=== PATIENT | female | born 1985 | race Caucasian/White ===

== ENCOUNTER 2019-03-25 10:05 | Outpatient (CLI) | payer OTHER, SELFPAY ==
--- NOTE | 2019-03-25 10:15 | MM_ITS ---
WS: [id number] BILATERAL DIGITAL DIAGNOSTIC MAMMOGRAM MAMMOGRAPHY WITH CAD CLINICAL INFORMATION: LT BREAST LUMP/MASS 1 AND 3 O'CLOCK COMPARISON: None. TECHNIQUE: Bilateral CC, MLO, and ML views. FINDINGS: The breasts are composed of heterogeneous fibroglandular density, which can limit the detection of sm all underlying mass lesions. Palpable marker outer left breast. Dense breast tissue in this area. Ult rasound is pending. ULTRASOUND BREAST LEFT TECHNIQUE: Ultrasound left breast focused area of concern. CLINICAL INFORMATION: LT BREAST LUMP/MASS 1 AND 3 O'CLOCK COMPARISON: None. FINDINGS: Ultrasound left breast at 3:00 position 3 cm from the nipple. In the areas areas of palpable concern, at the 12:00 and 2:00 position are multiple small simple and complex breast cysts that have a benign appearance. Findings are consistent with fibrocystic disease. No suspicious lesions to target for bi opsy. MM/[place] [id number] IMPRESSION: BI-RADS: 2-Benign FOLLOW UP: Age 40 Recommend annual screening mammography age 40.
== END 2019-03-25 10:06 | disposition home or self-care (01) ==
LOC: RADSHAW 10:10
PROVIDERS: Family Provider Family Medicine; PCP Family Medicine; Visit Provider Family Medicine
DX: N63.21 Unspecified lump in the left breast, upper outer quadrant (principal)
CPT/HCPCS: 76642; 77066

== ENCOUNTER → 2019-05-12 08:22 | Outpatient (BNVA) | payer OTHER, SELFPAY | PROVIDERS: Family Provider Family Medicine; PCP Family Medicine; Visit Provider Nurse Practitioner | DX: F90.2 Attention-deficit hyperactivity disorder, combined type (principal); F41.1 Generalized anxiety disorder | CPT/HCPCS: 99214 ==

== ENCOUNTER → 2019-07-28 07:47 | Outpatient (BNVA) | payer OTHER, SELFPAY | PROVIDERS: Family Provider Family Medicine; PCP Family Medicine; Visit Provider Nurse Practitioner | DX: F41.1 Generalized anxiety disorder (principal); F90.2 Attention-deficit hyperactivity disorder, combined type | CPT/HCPCS: 99213 ==

== ENCOUNTER 2020-01-01 22:06 | Emergency (ER) | payer OTHER, SELFPAY ==
[2020-01-01 22:12] VITALS: BP 120/82; PULSE 77; RESP 16; TEMP 36.7; O2SAT 100; BMI 25.8
--- NOTE | 2020-01-01 22:17 | XRR_ITS ---
PROCEDURE INFORMATION: Exam: XR Left Knee Exam date and time: 01/01/2020 11:00 PM Age: 34 years old Clinical indication: Injury or trauma; Fall; Sprain or strain; Patella or knee; Left; Additional info: Left knee pain TECHNIQUE: Imaging protocol: XR Left knee. Views: 3 views. COMPARISON: No relevant prior studies available. FINDINGS: Bones/joints: Normal. Soft tissues: Normal. XR/XR knee LT 3V* [id number] IMPRESSION: No acute findings.
--- NOTE | 2020-01-01 22:21 | ED_ITS ---
HPI - Extremity Problem General: Chief complaint: Extremity Injury, Lower Stated complaint: pain in left leg Time Seen by Provider: 01/01/20 22:09 History of Present Illness: HPI Narrative: 34-year-old female patient presents to the emergency department with left knee pain. She reports inability to extend her leg. States was sitting on the bed with her leg folded underneath her, when she went to get up, twisted her leg and felt intense pain to the left side of the left knee. Engages in cycling activity. Associated symptoms: Deny chest pain, fever(s) or rash Review of Systems General: Reports: 10 or more systems reviewed and unremarkable except in HPI and below Const: Denies: fever(s), chills or diaphoresis Eyes: Denies: blurry vision or eye redness ENMT: Denies: throat pain, dental pain or disequilibrium Card: Denies: chest pain, palpitations or irregular heart rhythm Resp: Denies: dyspnea, productive cough, non-productive cough or wheezing GI: Denies: abdominal pain, nausea or vomiting : Denies: difficulty voiding or dysuria Musc: Reports: joint pain (left knee); Denies: neck pain or back pain Skin/Breast: Denies: rash or pruritus Neuro: Denies: headache(s), weakness in extremities or behavioral changes Kaleb/Lymph: Denies: easy bruising PFSH ED PFSH: Medical History (Updated 01/01/20 @ 23:15 by ELOY Gamez) Attention-deficit hyperactivity disorder, combined type Generalized anxiety disorder Family History Mother Breast cancer Grandfather Diabetes paternal Father Pulmonary embolism Epilepsy Social History Smoking and tobacco status: never smoked Alcohol intake: current Alcohol intake frequency: holidays/special occasions only Physical Exam Const: COMMON NORMALS: no acute distress, patient oriented x3, healthy appearing and alert GENERAL APPEARANCE: cooperative, comfortable and well hydrated HENMT: COMMON NORMALS: normocephalic, Normal external nose present and moist oral mucous membranes HEAD & SCALP: normocephalic NOSE: Normal external nose present Eye: COMMON NORMALS: Equal, round and reactive pupils present and EOMs intact bilaterally GENERAL EYE: appearance normal, both eyes and all related structures PUPIL: Yes Equal, round and reactive pupils present Neck/C-Spine: COMMON NORMALS: full ROM and no lymphadenopathy GENERAL: Yes normal visual inspection and Yes trachea midline CERVICAL SPINE: Yes cervical ROM normal Lymph: LYMPHATIC: no lymphadenopathy noted Chest: COMMONS NORMALS: normal inspection of the chest Resp: COMMON NORMALS: normal respiratory effort and clear to auscultation bilaterally AUSCULTATION: clear to auscultation bilaterally Cardio: COMMON NORMALS: regular rhythm, S1 normal heart sound present, S2 normal heart sound present and Peripheral pulses 2+ throughout RHYTHM: regular rhythm HEART SOUNDS: S1 normal heart sound present and S2 normal heart sound present PERIPHERAL PULSES: Peripheral pulses 2+ throughout GI: COMMON NORMALS: Soft to palpation and non-tender INSPECTION: Yes normal to inspection PALPATION: Yes Soft to palpation : COMMON NORMALS: Yes no CVA tenderness BLADDER/KIDNEY EXAM: Yes no CVA tenderness Back/Pelvis: COMMON NORMALS: no CVA tenderness and thoracic and lumbar spine normal to inspection Extremity: COMMON NORMALS: normal to inspection and capillary refill normal GENERAL: Yes normal exam except as noted LEFT LOWER EXTREMITY: Yes knee joint (edema superior, lateral tenderness along the LCL) Left knee: Yes inspection, Yes palpation (negative erythema), Yes ROM (flexion present, difficulty with extension) and Yes neurovascular exam (distally intact) Neuro: COMMON NORMALS: patient oriented x3 and no focal motor deficits SENSORIUM/ORIENTATION: Yes alert Psych: COMMON NORMALS: mental status grossly normal, Normal thought process present and cooperative ACTIVITY/MOTOR BEHAVIOR: Yes appropriate eye contact THOUGHT PROCESS: Normal thought process present Skin: COMMON NORMALS: no rashes or lesions noted and turgor normal GENERAL SKIN EXAM: no rashes or lesions noted and turgor normal Course ED course: 34-year-old female patient presents to the emergency department with left leg pain. Inability to extend her leg upon initial presentation, hydrocodone and ibuprofen administered, extension improved, left knee series without acute fracture, outpatient MRI ordered at the request of patient and her spouse who is a physical therapist, knee immobilizer prescribed here in the ED. Patient reports she has crutches at home. Agrees to follow-up with her primary care provider/orthopedic surgery pending MRI results. Results were discussed with plan of care. Social service will assist with MRI scheduling. Vital Signs: Vital signs: Vital Signs Temperature 98.0 F 01/01/20 22:12 Pulse Rate 77 10/15/20 22:12 Respiratory Rate 16 01/01/20 22:12 Blood Pressure 120/82 01/01/20 22:12 Pulse Oximetry 100 01/01/20 22:12 Discharge Plan Discharge Patient Disposition: Home Clinical Impression: Knee effusion Qualifiers: Laterality: left Qualified Code(s): M25.462 - Effusion, left knee Acute knee pain Qualifiers: Laterality: left Qualified Code(s): M25.562 - Pain in left knee Condition: Stable Prescriptions: New Robaxin-750 750 mg tablet 750 mg PO TID Qty: 14 RF: 0 IBU 800 mg tablet 800 mg PO TID PRN (Reason: pain) Qty: 20 RF: 0 No Action norgestimate-ethinyl estradiol [Sprintec (28)] 0.25-35 mg-mcg tablet 1 tab PO DAILY Qty: 84 RF: 3 sertraline [Zoloft] 50 mg tablet 50 mg PO DAILY Qty: 30 RF: 2 clonazepam 0.5 mg tablet 0.5 mg PO DAILY PRN (Reason: anxiety) Qty: 30 RF: 2 dextroamphetamine-amphetamine [Adderall] 10 mg tablet 10 mg PO BID 30 Days Qty: 60 RF: 0 Discharge Orders: Discharge Order (Routine); Ordered 01/01/20 Ordered By: Asha Raymundo Referrals: Choco Guzmán DO [Primary Care Provider] - Discharge Diet: Usual diet Discharge Activity: Limit activity as instructed Patient Instructions: Knee Sprain (ED), Crutch Instructions (ED), Knee Immobilizer (ED) Activity Restrictions/Additional Instructions: Outpatient MRI has been ordered, clinical social work therapist will be contacting you with an appointment time Follow-up with Dr. Harvey/orthopedic surgery pending MRI results Take Robaxin as needed, do not drive or operate heavy machinery with use of medications, will cause drowsiness Return to the emergency department if you develop redness swelling of the right lower extremity with increased pain. Discharge Date/Time: 01/01/20 23:31 Coding Level of Care Code ED Cage Cashier for Imtiaz Fwd Exam Comprehensive
[2020-01-01] MEDS: ibuprofen 800 mg tablet PO (22:27)
[2020-01-01] MEDS: HYDROcodone-acetaminophen 5-325 mg Tablet 1 TAB PO (22:27)
[2020-01-01] MEDS: cyclobenzaprine 10 mg Tablet PO (23:32)
--- NOTE | 2020-01-02 08:55 | DCPLANNER ---
mine safety manager had message to schedule an out patient MRI for patient. mine safety manager faxed order to centralized scheduling, will call for appointment information.
--- NOTE | 2020-01-15 09:07 | DCPLANNER ---
Humaira from centralized scheduling emailed watch case polisher stating that patients insurance would not pay for MRI out of the ER. surgical services manager spoke with Humaira, stating that order could be cancelled, watch case polisher will call patient and have patient follow up with her primary care physician. surgical services manager spoke with patient, informing her that she would need to followup with her primary care and have the primary care physician order the MRI. Patient asked watch case polisher to fax patients records to the primary care physician. surgical services manager faxed patients records to primary care physician.
== END 2020-01-01 23:31 | disposition home or self-care (01) ==
PROVIDERS: Emergency Provider Nurse Practitioner Family; Family Provider Family Medicine; PCP Family Medicine
DX: M25.462 Effusion, left knee (principal)
CPT/HCPCS: 12345; 29530; 73562; 99281; 99283

== ENCOUNTER → 2020-01-13 07:46 | Outpatient (BNVA) | payer OTHER, SELFPAY | PROVIDERS: Family Provider Family Medicine; PCP Family Medicine; Visit Provider Nurse Practitioner | DX: F41.1 Generalized anxiety disorder (principal); F90.2 Attention-deficit hyperactivity disorder, combined type | CPT/HCPCS: 99213 ==

== ENCOUNTER 2020-04-11 19:58 | Emergency (ER) | payer OTHER, SELFPAY ==
[2020-04-11 20:31] VITALS: BP 124/70; BP 127/64; PULSE 76; PULSE 90; RESP 14; RESP 16; TEMP 37; O2SAT 98; O2SAT 99; BMI 23.6
--- NOTE | 2020-04-11 20:46 | W.ED.EXTPRO ---
HPI - Extremity Problem General: Chief complaint: Extremity Injury, Lower Stated complaint: torn left knee Time Seen by Provider: 04/11/20 20:35 Source: patient Mode of arrival: ambulatory Limitations: no limitations History of Present Illness: HPI Narrative: 34-year-old female who has had left knee pain. I saw her months ago where she had a her left bleeding lockup sound like a possible tear of her meniscus. She states that she is going through divorce and did not follow-up with orthopedist and did not have an MRI. She states that tonight it locked up again and having pain in that knee and difficulty straightening it. She states she is unable to ambulate on it. She denies any new injuries. Associated symptoms: Deny chest pain, fever(s) or rash Review of Systems Const: Denies: fever(s), chills, body aches or change in appetite Eyes: Denies: blurry vision or eye discomfort ENMT: Denies: throat pain or dental pain Card: Denies: chest pain Resp: Denies: dyspnea GI: Denies: abdominal pain, nausea, vomiting or diarrhea : Denies: dysuria Musc: Reports: joint pain Skin/Breast: Denies: rash Neuro: Denies: headache(s) Psych: Denies: depression Kaleb/Lymph: Denies: easy bruising All/Imm: Denies: urticaria PFSH ED PFSH: Medical History Attention-deficit hyperactivity disorder, combined type Generalized anxiety disorder Family History Mother Breast cancer Grandfather Diabetes paternal Father Pulmonary embolism Epilepsy Social History Smoking and tobacco status: never smoked Alcohol intake: current Alcohol intake frequency: holidays/special occasions only Physical Exam Const: COMMON NORMALS: no acute distress, patient oriented x3 and healthy appearing HENMT: COMMON NORMALS: normocephalic and atraumatic HEAD & SCALP: normocephalic and atraumatic Eye: COMMON NORMALS: Equal, round and reactive pupils present and EOMs intact bilaterally PUPIL: Yes Equal, round and reactive pupils present Neck/C-Spine: COMMON NORMALS: full ROM and supple Chest: COMMONS NORMALS: normal inspection of the chest and normal palpation of entire chest wall Resp: COMMON NORMALS: normal respiratory effort, No retractions, No use of accessory muscles and clear to auscultation bilaterally AUSCULTATION: clear to auscultation bilaterally Cardio: COMMON NORMALS: regular rate, regular rhythm and No murmurs present (Cardio) RATE: regular rate RHYTHM: regular rhythm GI: COMMON NORMALS: Normal to inspection, nondistended, normoactive bowel sounds present, Soft to palpation, non-tender and no masses PALPATION: Yes Soft to palpation Extremity: COMMON NORMALS: normal to inspection NARRATIVE EXTREMITY EXAM: Tenderness along left knee. She is having muscles to madams and difficulty straightening that leg. No obvious deformity. Neuro: COMMON NORMALS: patient oriented x3, moves all extremities and no focal motor deficits Psych: COMMON NORMALS: mental status grossly normal, Normal thought process present and cooperative THOUGHT PROCESS: Normal thought process present Skin: COMMON NORMALS: no rashes or lesions noted and no wounds GENERAL SKIN EXAM: no rashes or lesions noted Course Vital Signs: Vital signs: Vital Signs Temperature 98.6 F 04/11/20 20:31 Pulse Rate 76 04/11/20 20:31 Respiratory Rate 16 04/11/20 20:31 Blood Pressure 127/64 04/11/20 20:31 Pulse Oximetry 99 04/11/20 20:31 MDM - Extremity (Nontraumatic) MDM Narrative: Medical decision making narrative: Patient presents here with knee pain I do not believe she needs another x-ray and likely needs an MRI in the future. Patient's given pain meds along with muscle relaxants and she is to follow-up orthopedics. Patient is return if worsening. Discharge Plan Discharge Patient Disposition: Home Clinical Impression: Knee pain, left Qualifiers: Chronicity: acute Qualified Code(s): M25.562 - Pain in left knee Condition: Stable Prescriptions: [place] 5-325 mg tablet 1 tab PO Q6H PRN (Reason: pain) Qty: 14 RF: 0 Robaxin-750 750 mg tablet 750 mg PO Q6H Qty: 30 RF: 0 No Action norgestimate-ethinyl estradiol [Sprintec (28)] 0.25-35 mg-mcg tablet 1 tab PO DAILY Qty: 84 RF: 3 dextroamphetamine-amphetamine [Adderall] 10 mg tablet 10 mg PO BID 30 Days Qty: 60 RF: 0 clonazepam 0.5 mg tablet 0.5 mg PO DAILY PRN (Reason: anxiety) Qty: 30 RF: 2 sertraline [Zoloft] 50 mg tablet 50 mg PO DAILY Qty: 30 RF: 2 Robaxin-750 750 mg tablet 750 mg PO TID Qty: 14 RF: 0 IBU 800 mg tablet 800 mg PO TID PRN (Reason: pain) Qty: 20 RF: 0 Discharge Orders: Discharge ED (Routine); Ordered 04/11/20 Ordered By: Laurie Juárez Referrals: Ruslan Garduno MD [Physician] - 1-3 days Choco Guzmán DO [Primary Care Provider] - Discharge Diet: Advance as tolerated Discharge Activity: Resume usual activity Patient Instructions: Knee Pain (ED) Coding Level of Care Code ED Rack Room Worker for Imtiaz Baptiste
[2020-04-11] MEDS: HYDROcodone-acetaminophen 7.5-325 mg Tablet 1 TAB PO (20:48)
[2020-04-11] MEDS: cyclobenzaprine 10 mg Tablet PO (20:48)
--- NOTE | 2020-04-12 10:46 | DCPLANNER ---
transport manager had message to schedule a follow up appointment for patient with ortho. transport manager called the ortho clinic, spoke with Ruma, gave clinic patients information. transport manager was told that patients information would be printed and reviewed. Clinic will call patient with appointment information.
--- NOTE | 2020-04-13 07:29 | DCPLANNER ---
Patient has a follow up appointment scheduled for Monday, April 13, 2020 at 3:[address] Garduno. Clinic will call patient with appointment information.
--- NOTE | 2020-05-20 07:31 | DCPLANNER ---
Patient had a follow up appointment scheduled for 04.13.[address] Garduno - patient did attend appointment.
== END 2020-04-11 20:57 | disposition home or self-care (01) ==
PROVIDERS: Emergency Provider Emergency Medicine; PCP Family Medicine
DX: M25.562 Pain in left knee (principal)
CPT/HCPCS: 12345; 99281; 99283

== ENCOUNTER 2020-05-04 08:16 | Outpatient (CLI) | payer OTHER, SELFPAY ==
--- NOTE | 2020-05-04 08:27 | MR_ITS ---
WS: [id number] MRI LEFT KNEE HISTORY: M25.562 - Pain in left knee COMPARISON: LEFT knee radiograph 01/01/2020 Anterior cruciate ligament: Mild degenerative changes in the ACL. There is a small amount of fluid li ke signal in the mid ACL but no tear. Posterior cruciate ligament: Intact. Medial collateral ligament: Intact. Posterior lateral corner structures: Intact. Medial menisci: Intact. Normal signal, size and shape. Lateral meniscus: Intact. Normal signal, size and shape. Extensor mechanism: Distal quadriceps tendon and patellar tendons are intact. Fluid and soft tissue: No joint effusion. No Stewart's cyst. Osseous and articular structures: Patellofemoral compartment: Normal. Medial compartment: No significant joint space narrowing. The cartilage is intact with very minimal s urface fraying of the cartilage. No marrow edema. Lateral compartment: Mild fraying of the articular surface, slightly greater than the medial compartm ent. No full-thickness cartilage defect. No marrow edema. MR/MR knee LT wo con* [id number] IMPRESSION: 1. Very minimal intrasubstance degenerative changes in the ACL with no tear. 2. Very minimal surface fraying of the cartilage in the medial and lateral com partments. No full-thickness cartilage defects. 3. No loose bodies or meniscal fragments identified to explain patient's sympt oms.
== END 2020-05-04 08:17 | disposition home or self-care (01) ==
LOC: RADWPI 08:25
PROVIDERS: PCP Family Medicine; Visit Provider Orthopaedic Surgery
DX: M25.562 Pain in left knee (principal)
CPT/HCPCS: 73721

== ENCOUNTER 2020-05-18 06:00 | Outpatient (RCR) | payer OTHER, SELFPAY | END 2020-06-16 23:59 | disposition home or self-care (01) | LOC: SPT 06:00 | PROVIDERS: PCP Family Medicine; Referring Provider Orthopaedic Surgery; Visit Provider Orthopaedic Surgery | DX: M25.562 Pain in left knee (principal); M54.5 Low back pain | CPT/HCPCS: 97035; 97110; 97140; 97161 ==

== ENCOUNTER → 2020-06-29 07:51 | Outpatient (BNVA) | payer OTHER, SELFPAY | PROVIDERS: PCP Family Medicine; Visit Provider Nurse Practitioner | DX: F41.1 Generalized anxiety disorder (principal); F90.2 Attention-deficit hyperactivity disorder, combined type | CPT/HCPCS: 99214 ==

== ENCOUNTER → 2020-07-05 10:23 | Outpatient (BNVA) | payer OTHER, SELFPAY | PROVIDERS: PCP Family Medicine; Visit Provider Nurse Practitioner Family | DX: J06.9 Acute upper respiratory infection, unspecified (principal); B96.89 Other specified bacterial agents as the cause of diseases classified elsewhere; J02.9 Acute pharyngitis, unspecified | CPT/HCPCS: 87071; 87880 ==

== ENCOUNTER → 2021-03-31 12:52 | Outpatient (BNVA) | payer OTHER, SELFPAY | PROVIDERS: PCP Family Medicine; Visit Provider Nurse Practitioner Family | DX: J02.9 Acute pharyngitis, unspecified (principal); J02.0 Streptococcal pharyngitis | CPT/HCPCS: 87880 ==

== ENCOUNTER 2021-08-29 12:10 | Outpatient (CLI) | payer OTHER, SELFPAY ==
--- NOTE | 2021-08-29 12:21 | XRR_ITS ---
PROCEDURE INFORMATION: Exam: XR Chest Exam date and time: 08/29/2021 12:23 PM Age: 36 years old Clinical indication: Shortness of breath; Patient HX: SOB, lungs feel full for 6 days TECHNIQUE: Imaging protocol: XR of the chest. Views: 2 views. Total images: 2 COMPARISON: CR Chest 2 views* [id number] 09/10/2018 2:51 PM FINDINGS: Lungs: Unremarkable. No consolidation. Pleural spaces: Unremarkable. No pleural effusion. No pneumothorax. Heart/Mediastinum: Unremarkable. No cardiomegaly. Bones/joints: Unremarkable. XR/XR chest 2V* [id number] IMPRESSION: No acute findings.
== END 2021-08-29 12:11 | disposition home or self-care (01) ==
PROVIDERS: PCP Family Medicine; Visit Provider Clinical Nurse Specialist Adult Health
DX: R06.02 Shortness of breath (principal)
CPT/HCPCS: 71046

== ENCOUNTER 2022-10-06 10:04 | Outpatient (CLI) | payer OTHER, SELFPAY ==
--- NOTE | 2022-10-06 10:18 | US_ITS ---
WS: [id number] Complete ABDOMINAL ULTRASOUND HISTORY: RUQ PAIN COMPARISON: None available. Liver: 14.1 cm in length. Normal size liver and echogenicity. No bile duct dilatation or mass. Portal Vein: Normal hepatopetal flow with monophasic waveform. Gallbladder: Normally distended gallbladder with no stones or wall thickening. CBD: 0.2 cm Pancreas: Normal size and echogenicity. Right kidney: 9.9 cm x 4.5 x 3.5 cm. Cortex:1.2 cm. Normal size and echogenicity. No hydronephrosis or mass. Left kidney: 10.7 cm x 4.6 cm x 5.4 cm. Cortex: 1.3 cm. Normal size and echogenicity. No hydronephrosis or mass. Spleen: Normal. Aorta and IVC: Unremarkable abdominal aorta and IVC. US/US abdomen complete* [id number] Impression: Normal complete abdomen ultrasound.
== END 2022-10-06 10:05 | disposition home or self-care (01) ==
PROVIDERS: PCP Nurse Practitioner Family; Visit Provider Nurse Practitioner Family
DX: R10.11 Right upper quadrant pain (principal)
CPT/HCPCS: 76700

== ENCOUNTER 2023-04-25 22:47 | Emergency (ER) | payer OTHER, SELFPAY ==
[2023-04-25 22:48] VITALS: BP 128/79; PULSE 84; RESP 16; TEMP 36.7; O2SAT 97; BMI 26.4
--- NOTE | 2023-04-25 22:54 | XRR_ITS ---
PROCEDURE INFORMATION: Exam: XR Left Knee Exam date and time: 04/25/2023 10:59 PM Age: 37 years old Clinical indication: Pain; Knee; Left; Patient HX: Nki TECHNIQUE: Imaging protocol: Radiologic exam of the left knee. Views: 3 views. COMPARISON: No relevant prior studies available. FINDINGS: Bones/joints: Normal. Soft tissues: Normal. XR/XR knee LT 3V* [id number] IMPRESSION: No acute findings.
--- NOTE | 2023-04-25 23:05 | ED_ITS ---
HPI - Extremity Problem General: Chief complaint: Extremity Injury, Lower Stated complaint: left knee pain Time Seen by Provider: 04/25/23 22:48 History of Present Illness: Patient presents to the ER today by EMS with complaining of posterior left knee pain. Patient says when she was lifting her dog she twisted and felt a pop in her knee. Patient was given 75 mcg of fentanyl on route by EMS. Patient stated she done this several years ago they did an x-ray, eventually sent her to physical therapy for strengthening, and the knee was better up until tonight. Patient also states her knee locks up and will not allow her to straighten it out. Review of Systems General: Reports: 10 or more systems reviewed and unremarkable except in HPI and below [facility] ED Female Reproductive History: Date of last menstrual period: 04/10/23 Physical Exam Const: COMMON NORMALS: no acute distress, average body habitus, patient oriented x3, no limitations, healthy appearing, alert and well nourished HENMT: COMMON NORMALS: normocephalic, atraumatic, hearing grossly normal bilaterally, external ears normal, Normal external nose present, moist oral mucous membranes and oropharynx normal HEAD & SCALP: normocephalic and atraumatic NOSE: Normal external nose present EXTERNAL EAR: Yes external ears normal Neck/C-Spine: COMMON NORMALS: no JVD Chest: COMMONS NORMALS: normal inspection of the chest and normal palpation of entire chest wall Resp: COMMON NORMALS: normal respiratory effort, No retractions, No use of ac cessory muscles and clear to auscultation bilaterally AUSCULTATION: clear to auscultation bilaterally Cardio: COMMON NORMALS: no JVD, regular rate, regular rhythm, S1 normal heart sound present, S2 normal heart sound present, No gallops present (Cardio), No clicks present (Cardio), No murmurs present (Cardio) and No rub (Cardio) RATE: regular rate RHYTHM: regular rhythm HEART SOUNDS: S1 normal heart sound present and S2 normal heart sound present GI: COMMON NORMALS: Normal to inspection, nondistended, normoactive bowel sounds present, Soft to palpation, non-tender, No hepatosplenomegaly present and no masses PALPATION: Yes Soft to palpation and Yes No hepatosplenomegaly present Extremity: OTHER: Left knee tender to palpate posteriorly, limited range of motion secondary to pain Neuro: COMMON NORMALS: patient oriented x3 SENSORIUM/ORIENTATION: Yes alert Course Vital Signs: Vital signs: Vital Signs Temperature 98.1 F 04/25/23 22:48 Pulse Rate 72 04/26/23 00:08 Respiratory Rate 16 04/26/23 00:08 Blood Pressure 114/71 04/26/23 00:08 Pulse Oximetry 99 04/26/23 00:08 Oxygen Delivery Me thod Room Air 04/25/23 22:48 MDM - Extremity (Nontraumatic) Medical Decision Making Patient was given 75 mcg of fentanyl by EMS was given 60 mg Norflex in ER. X- ray was obtained which showed no acute findings. Patient was placed in a knee brace and will be sent home with a prescription for meloxicam and [place]. Patient asked for referral to Ortho we will consult case management for this. Differential Diagnosis Unlikely herpes zoster, gout, cellulitis, superficial thrombophlebitis, deep venous thrombosis of upper extremity, lower extremity edema or deep vein thrombosis of lower extremity Medical Records I reviewed the patient's medical records. Lab Data I reviewed the patient's lab results. Radiology Impressions Knee X-Ray 04/25/23 22:54 IMPRESSION: No acute findings. All radiology interpretation(s) finalized by discharge Discharge Plan Discharge Patient Disposition: Home Clinical Impression: Acute pain of left knee Condition: Stable Prescriptions: New hydrocodone-acetaminophen 5-325 mg tablet 1 tab PO Q6H PRN (Reason: pain) Qty: 14 0RF meloxicam 7.5 mg tablet 7.5 mg PO .Twice daily Qty: 14 0RF Discharge Orders: Discharge ED (Routine); Ordered 04/25/23 Ordered By: Juliocesar Ambrocio Patient Instructions: Knee Pain (ED), Knee Immobilizer (ED), Opioid Safety, Pain Management Activity Restrictions/Additional Instructions: Please take all medicine as directed. Please wear knee immobilizer until seen by Ortho. Given referred to case management they will probably be calling you tomorrow to arrange an a follow-up appointment with orthopedics. Coding Level of Care Code ED Traffic Maintenance Supervisor for Imtiaz Baptiste
[2023-04-25] MEDS: orphenadrine 30 mg/mL Inj 2 mL 60 MG IVP (23:06)
[2023-04-25] MEDS: HYDROcodone-acetaminophen 5-325 mg Tablet 1 TAB PO (23:47)
[2023-04-26 00:08] VITALS: BP 114/71; PULSE 72; RESP 16; O2SAT 99
--- NOTE | 2023-04-26 12:05 | DCPLANNER ---
Message was sent to ortho on 04/26/23 at 1205. Clinic to contact patient.
== END 2023-04-26 00:08 | disposition home or self-care (01) ==
PROVIDERS: Emergency Provider Emergency Medicine
DX: M25.562 Pain in left knee (principal)
CPT/HCPCS: 29530; 73562; 96374; 99284; E0114; J2360

== ENCOUNTER → 2023-05-04 09:18 | Outpatient (BNVA) | payer OTHER, SELFPAY | PROVIDERS: Referring Provider Emergency Medicine; Visit Provider Physician Assistant | DX: M23.92 Unspecified internal derangement of left knee (principal); S89.92XA Unspecified injury of left lower leg, initial encounter; X58.XXXA Exposure to other specified factors, initial encounter | CPT/HCPCS: 73560 ==

== ENCOUNTER → 2023-06-27 09:16 | Outpatient (BNVA) | payer OTHER, SELFPAY | PROVIDERS: PCP Family Medicine; Visit Provider Family Medicine | DX: R10.13 Epigastric pain (principal); R25.1 Tremor, unspecified; F41.9 Anxiety disorder, unspecified | CPT/HCPCS: 80053; 82728; 83550; 84439; 84443; 85025 ==

== ENCOUNTER 2023-11-08 17:47 | Emergency (ER) | payer OTHER, SELFPAY ==
--- NOTE | 2023-11-08 17:53 | ECG_ITS ---
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 Measurements Intervals [place] Rate: 64 P: 63 [place]: 142 QRS: 29 QRSD: 77 T: -1 QT: 392 QTc: 406 Interpretive Statements SINUS RHYTHM NONSPECIFIC T-WAVE ABNORMALITY No previous ECG available for comparison Electronically Signed On 11-08-2023 18:28:04 CDT by Bo Hernandez M.D. [id number]
--- NOTE | 2023-11-08 18:02 | XRR_ITS ---
PROCEDURE INFORMATION: Exam: XR Chest Exam date and time: 11/08/2023 6:33 PM Age: 38 years old Clinical indication: Chest wall pain; Additional info: Chest pain, feels like throat is closing and difficulty swallowing x 1 wk TECHNIQUE: Imaging protocol: Radiologic exam of the chest. Views: 1 view. COMPARISON: No relevant prior studies available. FINDINGS: Lungs: The lungs are adequately expanded. No focal consolidations or pulmonary edema. Pleural spaces: No pleural effusions or pneumothorax. Heart/Mediastinum: No cardiomegaly. Bones/joints: No acute fractures. XR/XR chest 1V portable [id number] IMPRESSION: No acute pulmonary disease.
[2023-11-08 18:07] VITALS: BP 125/90; PULSE 71; RESP 16; TEMP 36.7; O2SAT 98; BMI 25.9
[2023-11-08 18:30] LABS: Basophils % 0.3 %; Eosinophils % 0.1 %; Hematocrit 40.1 % (36-47); Lymphocytes # 2.1 10^3/uL (0.8-4.8); Mean Corpuscular HGB Conc 34.4 g/dL (30-55); Mean Corpuscular Hemoglobin 30.8 pg (27-33); Mean Corpuscular Volume 89.5 fl (85-98); Mean Platelet Volume 9.8 fL (7.4-10.4); Monocytes # 0.7 10^3/uL (0.2-0.9); Monocytes % 5.8 %; Neutrophils # 8.75 10^3/uL (1.8-7.7); Neutrophils % 75.5 %; Nucleated Red Blood Cells % 0 %; Platelet Count 321 10^3/cmm (157-399); Red Blood Count 4.48 10^6/uL (3.85-5.65); Red Cell Distribution Width 12.1 % (12.1-15.1); White Blood Count 11.58 10^3/uL (3.29-11.43)
[2023-11-08 18:49] LABS: Troponin(5th) Baseline < 6 ng/L (0-10)
[2023-11-08 18:50] LABS: Alanine Aminotransferase 62 U/L (0-33); Albumin Level 4.5 g/dL (3.5-5.2); Alkaline Phosphatase 53 U/L (35-105); Anion Gap 15.1 (5-19); Aspartate Amino Transferase 29 U/L (0-32); Blood Urea Nitrogen 12 mg/dL (6-20); Calcium 9.1 mg/dL (8.5-10.5); Carbon Dioxide 24 mmol/L (22-29); Chloride 93 mmol/L (98-107); Creatinine Clr Calc Pharmacy 139.2129; Globulin 2.5 g/dL (1.3-4.6); Glomerular Filtration Rate 111.9 mL/min (90-130); Glucose 106 mg/dL (65-115); Osmolality Calculated 268 mOsm/kg (285-295); Potassium 3.1 mmol/L (3.5-5.1); Sodium 129 mmol/L (136-145); Total Bilirubin 0.6 mg/dL (0.15-1.2)
--- NOTE | 2023-11-08 18:52 | W.ED.ABDPA2 ---
HPI - Abdominal Pain General: Chief Complaint: Airway/Esophagus Foreign Body Stated Complaint: throat tightening and chest tighting Time Seen by Provider: 11/08/23 18:43 History of Present Illness: 38-year-old female comes in today for complaints of difficulty swallowing. Patient reports that she was started on buspirone and shortly after about 3 doses of buspirone she started having some difficulty swallowing and feeling tightness in her throat. Patient appears nontoxic. Patient appears in no acute distress. Patient admits to having anxiety disorder. Patient does use sertraline and propranolol for her chronic symptoms. Patient also takes OCP. Patient denies any surgeries except left oophorectomy secondary to ectopic . 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 Patient had no prior endoscopy. Patient does endorse occasional heartburn. Patient reports feeling spasms at times in her throat and chest. Patient reports that she has been drinking water without difficulty. Related Data Home Medications Medication Instructions Recorded Confirmed norethindrone 1 mg-ethinyl 1 tab PO DAILY 10/29/23 11/08/23 estradiol 20 mcg (21)-iron 75 mg (7) tablet (Blisovi Fe 04/07 (28)) Previous Rx's Medication Instructions Recorded albuterol sulfate 90 mcg/actuation 2 puff inhalation Q6H PRN 07/05/20 aerosol inhaler (ProAir HFA) shortness of breath or wheezing #8.5 grams hydroxyzine HCl 25 mg tablet 25 mg PO TID PRN itching #60 tabs 10/29/23 sertraline 50 mg tablet (Zoloft) 50 mg PO DAILY #60 tabs 10/29/23 benztropine 1 mg tablet 1 mg PO BID #6 tabs 11/08/23 propranolol 10 mg tablet 10 mg PO BID 2 weeks #28 tabs 11/08/23 Allergies Allergy/AdvReac Type Severity Reaction Status Date / Time azithromycin [From Zithromax] Allergy unknown Verified 11/08/23 15:57 Review of Systems General: Reports: 10 or more systems reviewed and unremarkable except in HPI and below ENMT: Reports: other (Difficulty swallowing) [facility] ED PFS: Medical History (Updated 11/08/23 @ 19:49 by DENNY Stone) Dysphagia Panic attack due to post traumatic stress disorder (PTSD) Major depressive disorder, recurrent, moderate Generalized anxiety disorder Attention-deficit hyperactivity disorder, combined type MDD (major depressive disorder) ADHD Generalized anxiety disorder IgA deficiency Anxiety Aborted ectopic Surgical History (System 11/08/23 @ 09:46 by Cynthia Huang) [place] teeth removed Family History (System 11/08/23 @ 09:46 by Cynthia Huang) Mother Breast cancer Grandfather Diabetes paternal Father Pulmonary embolism Epilepsy Social History (System 11/08/23 @ 09:46 by Cynthia Huang) Smoking and tobacco/nicotine status: never used tobacco/nicotine Second hand smoke exposure: No Alcohol intake: current Alcohol intake frequency: holidays/special occasions only Substance/Drug Use: never Physical Exam Const: COMMON NORMALS: alert HENMT: COMMON NORMALS: normocephalic HEAD & SCALP: normocephalic Neck/C-Spine: COMMON NORMALS: full ROM Resp: COMMON NORMALS: normal respiratory effort and clear to auscultation bilaterally AUSCULTATION: clear to auscultation bilaterally Cardio: COMMON NORMALS: regular rate and regular rhythm RATE: regular rate RHYTHM: regular rhythm GI: COMMON NORMALS: Soft to palpation AUSCULTATION: Yes normoactive bowel sounds PALPATION: Yes Soft to palpation and No Tenderness to palpation present (GI) : COMMON NORMALS: Yes no CVA tenderness BLADDER/KIDNEY EXAM: Yes no CVA tenderness Back/Pelvis: COMMON NORMALS: no CVA tenderness Extremity: COMMON NORMALS: full ROM Neuro: SENSORIUM/ORIENTATION: Yes alert Skin: COMMON NORMALS: turgor normal GENERAL SKIN EXAM: turgor normal Course Vital Signs: Vital signs: Vital Signs Temperature 98.0 F 11/08/23 18:07 Pulse Rate 71 11/08/23 18:07 Respiratory Rate 14 11/08/23 19:13 Blood Pressure 116/73 11/08/23 19:13 Pulse Oximetry 98 11/08/23 19:13 Oxygen Delivery Me thod Room Air 11/08/23 18:07 MDM - Abdominal Pain Medical Decision Making 38-year-old female comes in today with difficulty swallowing. Patient appears nontoxic. Patient appears no acute distress. Respirations are even lungs are clear to auscultation. Patient does report some sensation of spasming in her chest when she swallows. Vital signs are normal. Differential diagnosis includes panic disorder, malingering, conversion disorder, dystonic reaction. Suspect patient may have had a dystonic reaction to the buspirone. Patient was given Cogentin 1 mg per IV and 1 L of lactated Ringer's. Patient was recommended to use electrolytes in her fluid until she can return to her normal diet. Recommend follow-up with primary care in 3 to 5 days for recheck. Return to ED for new concerns. Lab Data 11/08/23 18:24 11/08/23 18:24 Labs/Radiology: Radiology Impressions Chest X-Ray 11/08/23 18:02 IMPRESSION: No acute pulmonary disease. Laboratory Results WBC 11.58 10^3/uL (3.29-11.43) H 11/08/23 18: RBC 4.48 10^6/uL (3.85-5.65) 11/08/23 18: Hgb 13.80 g/dL (11.27-16.99) 11/08/23 18: Hct 40.1 % (36-47) 11/08/23 18: MCV 89.5 fl (85-98) 11/08/23 18: MCH 30.8 pg (27-33) 11/08/23 18: MCHC 34.4 g/dL (30-55) 11/08/23 18: RDW 12.1 % (12.1-15.1) 11/08/23 18: Plt Count 321 10^3/cmm (157-399) 11/08/23 18: MPV 9.8 fL (7.4-10.4) 11/08/23 18: Neut % (Auto) 75.5 % 11/08/23 18: Lymph % (Auto) 18.0 % 11/08/23 18: [place] % (Auto) 5.8 % 11/08/23 18: Eos % (Auto) 0.1 % 11/08/23 18: Baso % (Auto) 0.3 % 11/08/23 18: Neut # (Auto) 8.75 10^3/uL (1.8-7.7) H 11/08/23 18:24 Lymph # (Auto) 2.1 10^3/uL (0.8-4.8) 11/08/23 18: [place] # (Auto) 0.7 10^3/uL (0.2-0.9) 11/08/23 18:24 Eos # (Auto) 0.0 10^3/uL (0.0-0.8) 11/08/23 18:24 Baso # (Auto) 0.0 10^3/uL (0.0-0.1) 11/08/23 18:24 Nucleated RBC % (auto) 0 % 11/08/23 18:24 Nucleated RBCs # 0.0 /100WBC 11/08/23 18:24 Sodium 129 mmol/L (136-145) L 11/08/23 18:24 Potassium 3.1 mmol/L (3.5-5.1) L 11/08/23 18:24 Chloride 93 mmol/L (98-107) L 11/08/23 18:24 Carbon Dioxide 24 mmol/L (22-29) 11/08/23 18:24 Anion Gap 15.1 (5-19) 11/08/23 18:24 BUN 12 mg/dL (6-20) 11/08/23 18:24 Creatinine 0.6 mg/dL (0.5-0.9) 11/08/23 18:24 GFR Calculation 111.9 mL/min (90-130) 11/08/23 18:24 Glucose 106 mg/dL (65-115) 11/08/23 18:24 Calculated Osmolality 268 mOsm/kg (285-295) L 11/08/23 18:24 Calcium 9.1 mg/dL (8.5-10.5) 11/08/23 18:24 Total Bilirubin 0.6 mg/dL (0.15-1.2) 11/08/23 18:24 AST 29 U/L (0-32) 11/08/23 18:24 ALT 62 U/L (0-33) H 11/08/23 18:24 Alkaline Phosphatase 53 U/L (35-105) 11/08/23 18:24 Troponin T Baseline < 6 ng/L (0-10) 11/08/23 18:24 Total Protein 7.0 g/dL (6.6-8.7) 11/08/23 18:24 Albumin 4.5 g/dL (3.5-5.2) 11/08/23 18:24 Globulin 2.5 g/dL (1.3-4.6) 11/08/23 18:24 Lipase 78 U/L (13-60) H 11/08/23 18:24 All radiology interpretation(s) finalized by discharge Discharge Plan Discharge Patient Disposition: Home Clinical Impression: Dystonic drug reaction Dysphagia Qualifiers: Dysphagia type: unspecified Qualified Code(s): R13.10 - Dysphagia, unspecified Condition: Stable Prescriptions: New benztropine 1 mg tablet 1 mg PO BID Qty: 6 0RF No Action albuterol sulfate [ProAir HFA] 90 mcg/actuation HFA aerosol inhaler 2 puff inhalation Q6H PRN (Reason: shortness of breath or wheezing) Qty: 8.5 0RF norethindrone-e.estradiol-iron [Blisovi Fe 04/07 (28)] 1 mg-20 mcg (21)/75 mg (7) tablet 1 tab PO DAILY sertraline [Zoloft] 50 mg tablet 50 mg PO DAILY Qty: 60 0RF hydroxyzine HCl 25 mg tablet 25 mg PO TID PRN (Reason: itching) Qty: 60 1RF propranolol 10 mg tablet 10 mg PO BID 14 Days Qty: 28 0RF Discharge Orders: Discharge ED (Routine); Ordered 11/08/23 Ordered By: Shane Osuna Referrals: Avi Baker MD [Primary Care Provider] - Patient Instructions: Adverse Drug Reaction (ED) Activity Restrictions/Additional Instructions: Follow-up with primary care in 3 days for recheck. Continue with fluids. Make sure to drink some electrolyte solution to help maintain your sodium and potassium. engineering project manager will contact you regarding follow-up with the surgeons office for endoscopy procedure to check your throat. Return to ER for fever greater than 100.4, blood in vomit or stool, or new concerns. Coding Level of Care Code ED Center Line Cutter Operator for Imtiaz Baptiste
[2023-11-08] MEDS: benztropine 1 mg/mL SDV 2 mL IVP (19:06)
[2023-11-08] MEDS: lactated ringers 1,000 ML 999 ML IV (19:09)
[2023-11-08 19:13] VITALS: BP 116/73; RESP 14; O2SAT 98
[2023-11-08 19:14] LABS: Lipase 78 U/L (13-60)
--- NOTE | 2023-11-08 19:20 | PC.NURSE ---
pt reports that she started to notice problems with swallowing solid food last sunday. She states that she does have anxiety but this is different. Reports starting Buspar on the same day as symptoms. Able to swallow water without difficulties. Normal breathsounds.
--- NOTE | 2023-11-08 20:03 | ECG_ITS ---
Test Date: 2023-11-08 Pat Name: Chantel Pruitt Department: Room: Gender: Female [employer]: : 1985 Requested By: Bettina Nickerson Order Number: [id number] Diaz MD: Bo Hernandez M.D. Measurements Intervals [place] Rate: 58 P: 65 [place]: 151 QRS: 48 QRSD: 82 T: 31 QT: 373 QTc: 368 Interpretive Statements SINUS BRADYCARDIA NONSPECIFIC T-WAVE ABNORMALITY Compared to ECG 11/08/2023 17:53:26 Sinus rhythm no longer present T-wave abnormality still present Electronically Signed On 11-08-2023 23:24:20 CDT by Bo Hernandez M.D. [id number]
[2023-11-08] MEDS: potassium chloride oral liq 20 mEq/15 mL UDC 40 MEQ PO (20:43)
[2023-11-08] MEDS: LORazepam 2 mg/mL INJ 1 mL 1 MG IVP (20:44)
[2023-11-08 21:00] VITALS: BP 122/68; RESP 16; O2SAT 99
[2023-11-08 21:17] VITALS: BP 124/72; RESP 16; O2SAT 98
--- NOTE | 2023-11-09 03:56 | DCPLANNER ---
Message sent to General surgery for a EGD
== END 2023-11-08 21:29 | disposition home or self-care (01) ==
PROVIDERS: Nurse Practitioner Family; Emergency Provider Emergency Medicine; PCP Family Medicine
DX: R13.10 Dysphagia, unspecified (principal); G24.09 Other drug induced dystonia; T43.595A Adverse effect of other antipsychotics and neuroleptics, initial encounter
CPT/HCPCS: 36415; 71045; 80053; 83690; 84484; 85025; 93005; 96361; 96374; 96375; 99285; J0515; J2060; J7120

== ENCOUNTER 2024-11-18 09:41 | Outpatient (CLI) | payer OTHER, SELFPAY ==
--- NOTE | 2024-11-18 09:40 | MM_ITS ---
WS: [id number] BILATERAL 3D TOMOSYNTHESIS DIGITAL SCREENING MAMMOGRAPHY WITH CAD CLINICAL INFORMATION: SCREENING HISTORY: Screening mammogram. No current complaints. COMPARISON: 10/26/2023 TECHNIQUE: Bilateral CC and MLO views. FINDINGS: The breasts are composed of heterogeneous fibroglandular density tissue, which can limit the detection of small underlying mass lesions. No suspicious mass, asymmetry, calcifications, or architectural distortion. No evidence of malignancy. Scattered punctate calcifications in the LEFT greater than RIGHT breast similar to previous MM/MM [facility] tomosynthesis [id number] IMPRESSION: DENSITY: The breasts are heterogeneously dense, which may obscure small masses. BI-RADS: 2 - Benign FOLLOW UP: 1 Year Follow-up Recommend return to annual screening mammography.
== END 2024-11-18 09:42 | disposition home or self-care (01) ==
LOC: MOBLMAM 09:46
PROVIDERS: PCP Internal Medicine; Visit Provider Internal Medicine
DX: Z12.31 Encounter for screening mammogram for malignant neoplasm of breast (principal); R92.331 Mammographic heterogeneous density, right breast
CPT/HCPCS: 77063; 77067